=== PATIENT | male | born 1940 | race Caucasian/White ===

== ENCOUNTER 2021-09-11 21:15 | Emergency (ER) | payer MEDICARE ==
[2021-09-11] MEDS ORDERED: cloNIDine 0.1 MG Tab PO ONE (22:08)
[2021-09-11] MEDS ORDERED: Ketorolac 30 MG/ML SDV IM ONE (22:09)
--- NOTE | 2021-09-11 22:15 | EDM.PDOC ---
ED HPI GENERAL MEDICAL PROBLEM - General Chief Complaint: Headache Stated Complaint: HEADACHE Time Seen by Provider: 09/11/21 22:00 Source of Information: Reports: Patient, Old Records, RN History Limitations: Reports: No Limitations - History of Present Illness INITIAL COMMENTS - FREE TEXT/NARRATIVE: 80 yo male presents with a BROWN that began about midday. It feels like a typical BROWN for him and he calls them migraines. He feels them in his forehead and they are associated with a rainbow of color in his vision as it is today. No fever or neck pain or nausea. He usually gets relief with acetaminophen if caught early, but not today. No trouble walking. He drove himself to the ER from his residence. He was unaware of his BP being elevated. Says his BP has been at least a little high on several occasions, but he is not yet on any HTN meds. Onset: Today, Gradual (onset over about 30 min) Onset Date: 09/11/21 Onset Time: 12:00 Duration: Hour(s):, Constant Location: Reports: Head Quality: Reports: Ache Severity: Moderate Improves with: Reports: None Worsens with: Reports: Other (unsure) Context: Reports: Other (See HPI) Associated Symptoms: Reports: Headaches. Denies: Diaphoresis, Fever/Chills, Nausea/Vomiting, Weakness Treatments [employer]: Reports: Acetaminophen Frontal Headache Pain Score (Numeric/FACES): 6 - Related Data Allergies Allergy/AdvReac Type Severity Reaction Status Date / Time No Known Allergies Allergy Verified 09/11/21 21:32 Home Meds: Home Meds Aspirin [Adult Low Dose Aspirin EC] 81 mg PO DAILY 09/11/21 [History] Levothyroxine Sodium [Synthroid] 125 mcg PO DAILY 09/11/21 [History] Rosuvastatin [Crestor] 10 mg PO DAILY 09/11/21 [History] atenoloL [Atenolol] 50 mg PO DAILY #30 tablet 09/11/21 [Rx] Past Medical History Cardiovascular History: Reports: High Cholesterol Social & Family History - Tobacco Use Tobacco Use Status *Q: Never Tobacco User - Alcohol Use Number of Drinks Per Day: 1 - Recreational Drug Use Recreational Drug Use: No ED ROS GENERAL - Review of Systems Review Of Systems: See Below Constitutional: Reports: No Symptoms. Denies: Fever, Chills HEENT: Reports: No Symptoms Respiratory: Reports: No Symptoms Cardiovascular: Reports: No Symptoms GI/Abdominal: Denies: Nausea Musculoskeletal: Reports: No Symptoms Skin: Reports: No Symptoms Neurological: Reports: Headache. Denies: Dizziness - Physical Exam Exam: See Below Exam Limited By: No Limitations General Appearance: Alert, WD/WN, No Apparent Distress Eye Exam: Bilateral Eye: Normal Inspection Ears: Normal External Exam, Normal Canal, Hearing Grossly Normal, Normal TMs Nose: Normal Inspection, No Blood Throat/Mouth: Normal Inspection, Normal Lips, Normal Oropharynx, Normal Voice, No Airway Compromise Head Exam: Atraumatic, Normocephalic Neck: Normal Inspection Respiratory/Chest: No Respiratory Distress, Lungs Clear, Normal Breath Sounds, No Accessory Muscle Use Cardiovascular: Regular Rate, Rhythm, No Edema GI/Abdominal: Normal Bowel Sounds, Soft, Non-Tender, No Distention. No: Disten ded Neuro Exam (Abbreviated): Alert, Oriented, CN II-XII Intact, Normal Cognition, No Motor/Sensory Deficits, Other (Has chronic R facial droop since high school) Back Exam: Normal Inspection Extremities: Normal Inspection Psychiatric: Normal Affect, Normal Mood Skin Exam: Warm, Dry, Intact, Normal Color, No Rash Course - Vital Signs Last Recorded V/S: Last Vital Signs Temp 36.4 C 09/11/21 21:36 Pulse 72 09/11/21 23:03 Resp 16 09/11/21 23:03 BP 170/94 H 09/11/21 23:03 Pulse Ox 96 09/11/21 23:03 - Orders/Labs/Meds Meds: Medications Discontinued Medications Generic Name Dose Route Start Last Admin Trade Name Eloisa PRTj Reason Stop Dose Admin Clonidine HCl 0.1 mg 09/11/21 22:08 09/11/21 22:30 Clonidine 0.1 Mg Tab PO 09/11/21 22:09 0.1 mg ONETIME ONE Administration Ketorolac Tromethamine 30 mg 09/11/21 22:09 09/11/21 22:30 Ketorolac 30 Mg/Ml Sdv IM 09/11/21 22:10 30 mg ONETIME ONE Administration - Re-Assessments/Exams Free Text/Narrative Re-Assessment/Exam: 09/11/21 23:06 BROWN more than 50% gone, wants to go home. BP improved, but still elevated Departure - Departure Time of Disposition: 23:07 Disposition: Home, Self-Care 01 Condition: Fair Clinical Impression: Migraine Qualifiers: Migraine type: with aura Status migrainosus presence: without status migrainosus Intractability: not intractable Qualified Code(s): G43.109 - Migraine with aura, not intractable, without status migrainosus HTN (hypertension) Qualifiers: Hypertension type: unspecified Qualified Code(s): I10 - Essential (primary) hypertension - Discharge Information *PRESCRIPTION DRUG MONITORING PROGRAM REVIEWED*: Not Applicable *COPY OF PRESCRIPTION DRUG MONITORING REPORT IN PATIENT FELIX: Not Applicable Instructions: Hypertension, Adult, [id number] Referrals: Eri Brown MD [Primary Care Provider] - Forms: ED Department Discharge Additional Instructions: Take Atenolol every morning for your blood pressure. See your doctor for a BP recheck within the week. Try Excedrin Migraine for your headaches. Recheck here as needed. Sepsis Event Note (ED) - Evaluation Sepsis Screening Result: No Definite Risk - Focused Exam Vital Signs: Vital Signs Temp Pulse Resp BP BP Pulse Ox 09/11/21 23:03 72 16 170/94 H 96 09/11/21 22:30 176/87 H 09/11/21 22:28 65 176/87 H 96 09/11/21 21:37 72 16 186/89 H 97 09/11/21 21:36 36.4 C 73 15 193/89 H 97 09/11/21 21:30 36.4 C 73 15 193/89 H 97
== END 2021-09-11 23:17 | disposition home or self-care (01) ==
LOC: JP.ED 21:15
DX: G43.109 Migraine with aura, not intractable, without status migrainosus (principal); I10 Essential (primary) hypertension; E78.00 Pure hypercholesterolemia, unspecified; Z79.82 Long term (current) use of aspirin; Z79.899 Other long term (current) drug therapy
CPT/HCPCS: 96372; 99283; 99284; A9270; J1885

== ENCOUNTER 2022-10-15 14:59 | Emergency (ER) | payer MEDICARE ==
[2022-10-15] MEDS ORDERED: Ondansetron 4 MG Tab.DIS PO ONE (15:49)
== END 2022-10-15 17:00 | disposition home or self-care (01) ==
LOC: JP.ED 14:59
DX: K52.9 Noninfective gastroenteritis and colitis, unspecified (principal); Z79.82 Long term (current) use of aspirin; Z79.899 Other long term (current) drug therapy
CPT/HCPCS: 36415; 80048; 85025; 99284; Q0162